=== PATIENT | male | born 1970 | race African-American/Black ===

== ENCOUNTER → 2020-08-11 | Outpatient (CLI) | payer BC ==
[2020-08-11 13:58] LABS: ABSOLUTE EOSINOPHILS # (AUTO) 0.1 10^3/uL (0.0-0.6); ABSOLUTE LYMPHOCYTES (AUTO) 1.5 10^3/uL (0.5-4.7); ABSOLUTE MONOCYTES (AUTO) 0.4 10^3/uL (0.1-1.4); ABSOLUTE NEUT (AUTO) 2.2 10^3/uL (1.7-8.2); BASOPHILS % (AUTO) 0.7 % (0-2); EOSINOPHILS % (AUTO) 3.1 % (0-6); HEMATOCRIT 43.7 % (37.9-51.0); HEMOGLOBIN 14.5 g/dL (13.5-17.0); LYMPHOCYTES % (AUTO) 34.7 % (13-45); MEAN CORPUSCULAR HEMOGLOBIN 27.5 pg (27.0-33.4); MEAN CORPUSCULAR HGB CONC 33.2 g/dL (32.0-36.0); MEAN CORPUSCULAR VOLUME 83 fl (80-97); MONOCYTES % (AUTO) 9.2 % (3-13); PLATELET COUNT 227 10^3/uL (150-450); RED BLOOD COUNT 5.27 10^6/uL (4.35-5.55); RED CELL DISTRIBUTION WIDTH 13.1 % (11.5-14.0); SEGMENTED NEUTROPHILS % (AUTO) 52.3 % (42-78); TOTAL CELLS COUNTED % (AUTO) 100 %; WHITE BLOOD COUNT 4.2 10^3/uL (4.0-10.5)
[2020-08-11 14:58] LABS: FREE T3 2.71 pg/mL (2.77-5.27)
[2020-08-11 15:12] LABS: THYROID STIMULATING HORMONE 1.15 uIU/mL (0.47-4.68)
[2020-08-12 07:06] LABS: THYROGLOBULIN AB <1.0 IU/mL (0.0-0.9)
[2020-08-12 08:47] LABS: THYROID PEROXIDASE (TPO) AB <9 IU/mL (0-34)
== END ==
LOC: OD 12:53
DX: E06.9 Thyroiditis, unspecified (principal); R53.83 Other fatigue
CPT/HCPCS: 36415; 82533; 84443; 84481; 85025; 86376; 86800